=== PATIENT | female | born 1950 | race Caucasian/White ===

== ENCOUNTER 2020-09-18 12:10 | Emergency (ER) | payer MEDICARE, OTHER ==
[~2020-09-18] VITALS: Ht 172.7 cm; Wt 59.4 kg
[2020-09-18 12:36] VITALS: BP 146/85
[2020-09-18] MEDS ORDERED: SYNTHROID150 MCG PO (12:43)
== END 2020-09-18 14:33 | disposition home or self-care (01) ==
LOC: M.ERS 12:10
DX: J90 Pleural effusion, not elsewhere classified (principal); Z85.850 Personal history of malignant neoplasm of thyroid